=== PATIENT | male | born 1995 | race Caucasian/White ===

== ENCOUNTER 2020-02-24 22:17 | Emergency (ER) | payer OTHER ==
[~2020-02-24] VITALS: Ht 182.9 cm; Wt 112.7 kg
[~2020-02-24 22:17] MED LIST: METH500T PO
[2020-02-24] MEDS ORDERED: ALBU8HFA PO (22:32)
[2020-02-24] MEDS ORDERED: PRED20TA PO (22:32)
== END 2020-02-24 22:53 | disposition home or self-care (01) ==
LOC: ER 22:18
DX: J06.9 Acute upper respiratory infection, unspecified (principal); F17.200 Nicotine dependence, unspecified, uncomplicated; Z79.899 Other long term (current) drug therapy
CPT/HCPCS: 99283